=== PATIENT | female | born 1975 | race Two or more races ===

== ENCOUNTER 2020-04-18 14:07 | Emergency (ER) | payer BC, SELFPAY ==
--- NOTE | ~2020-04-18 | US_ITS ---
US OB <= 14 weeks fetus DATE: 04/18/2020 15:14 INDICATION: Vaginal bleeding today. Gravid patient. TECHNIQUE: Real-time imaging, Doppler analysis of the arch is the dose is recommended. COMPARISON: None FINDINGS: The uterus measures 15.7 cm height, 10.4 cm transverse and 6.1 cm anteroposterior dimension . There is a live single intrauterine gestation. heart rate of 161 bpm. Amniotic fluid volume [place] ears within normal limits. [place]-rump length averages 4.77 cm, consistent with estimated gestational age of 11 weeks 4 days +/- 1 week; DEL: 11/03/2020. There is focal mild fluid collection of approximately 8.4 x 15 x 26 mm adjacent to the gestational sa c which may be a small subchorionic hemorrhage. There are 2 uterine fibroids, measuring 2.2 x 1.8 x 1.2 cm and 2.0 x 1.8 x 1.4 cm. The ovaries are not demonstrated. No abnormal free pelvic fluid collection is evident. IMPRESSION: Small subchorionic hemorrhage is suspected Estimated gestational age of 11 weeks 4 days +/- 1 week; DEL: 11/03/2020 Reviewed, dictated and finalized at [facility]. Reviewed, dictated and finalized at [facility].
[2020-04-18 14:13] VITALS: BP 120/64; PULSE 69; RESP 16; TEMP 36.3; O2SAT 100
--- NOTE | 2020-04-18 14:39 | ED.GENADULT ---
HPI - General Adult General Chief complaint: Vaginal Bleeding Stated complaint: , bleeding Time Seen by Provider: 04/18/20 14:39 Source: patient and family Mode of arrival: ambulatory Limitations: no limitations History of Present Illness HPI narrative: Patient is a 44-year-old female G4, P2 approximately 7 weeks dated by last menstrual period who presents for evaluation of vaginal bleeding. Patient reports she had a normal ultrasound, verified IUP in her DEVELOPMENT MECHANIC's office last week, experiencing very light vaginal bleeding earlier today. Patient reports recent vaginal intercourse. No syncope, shortness of breath lightheadedness, or dizziness. No loss of fluids, abdominal cramping or back pain. No contraction-like pain. No fever, cough or shortness of breath. No dysuria. Patient follows with Dr. Zee, DEVELOPMENT MECHANIC at [facility]. Previous pregnancies were uncomplicated, her second resulted in a first trimester spontaneous miscarriage at 7 weeks. Review of Systems Review of Systems: Narrative: CONSTITUTIONAL: Denies fever, chills, or sweats. EYES: Denies visual changes, redness, or discharge. ENT: Denies rhinorrhea, congestion, sore throat, or otalgia. CARDIOVASCULAR: Denies chest pain, palpitations, or edema. RESPIRATORY: Denies cough or dyspnea. GASTROINTESTINAL: Denies abdominal pain, nausea, vomiting, or diarrhea. GENITOURINARY: Denies dysuria or hematuria. SKIN: Denies rash or itching. MUSCULOSKELETAL: Denies back pain, joint pain, or myalgia. NEUROLOGIC: Denies headache, numbness, or weakness. PSYCHIATRIC: Denies anxiety or depression. [facility] Social History Social History (Updated 04/18/20 @ 15:11 by Lupe Gorman MD) Smoking status: Never smoker Alcohol intake: never Substance use: never Living arrangements: with family Gender identity (if verbalized by the patient): Female Exam Narrative: Exam Narrative: GENERAL: Awake, alert, conversant HEAD: Normocephalic, atraumatic. EYES: PERRLA and EOMI. ENT: Nares clear, no rhinorrhea or epistaxis. Mucous membranes moist. NECK: Supple. CHEST: No respiratory distress, breathing even and non labored HEART: Regular rate, sinus rhythm ABDOMEN:Non distended, non tender : Labia majora and minora normal without lesions. Vagina with no blood present. No cervical motion tenderness. Os is not dilated. No adnexal tenderness or fullness bilaterally. No discharge present. EXTREMITIES: Normal range of motion. No edema. SKIN: Warm, dry, no rash. NEURO:No focal deficits. Alert and oriented x3 Course Course Emergency Course: Patient presented for evaluation of first trimester vaginal bleeding. At the time of assessment, ABCs are intact and vital signs are stable. No brisk bleeding or any blood present on exam. No pelvic pain, loss of fluids or contraction-like pain. Laboratory results are reassuring. Ultrasound identifies living IUP heart rate 161. Patient was subchorionic hematoma likely cause of bleeding. Also with recent vaginal intercourse which I explained to patient and her spouse that they need to abstain from until there evaluated by her DEVELOPMENT MECHANIC. Patient is O+, does not require RhoGam. Patient was then discharged home in stable condition. Vital Signs Vital signs: Vital Signs Temperature 36.3 C L 04/18/20 14:13 Pulse Rate 69 04/18/20 14:13 Respiratory Rate 16 04/18/20 14:13 Blood Pressure 120/64 04/18/20 14:13 Pulse Oximetry 100 04/18/20 14:13 Temperature 36.8 C 04/18/20 17:16 Pulse Rate 57 L 04/18/20 17:18 Respiratory Rate 18 04/18/20 17:18 Blood Pressure 124/77 04/18/20 17:18 Pulse Oximetry 100 04/18/20 17:18 Medical Decision Making Vital Signs Vital Signs: Vital Signs Temperature 36.3 C L 04/18/20 14:13 Pulse Rate 69 04/18/20 14:13 Respiratory Rate 16 04/18/20 14:13 Blood Pressure 120/64 04/18/20 14:13 Pulse Oximetry 100 04/18/20 14:13 Temperature 36.8 C 04/18/20 17:16
--- NOTE | 2020-04-18 14:57 | PC.NURSE ---
Patient taken to US prior to obtaining blood or urine samples.
--- NOTE | 2020-04-18 15:26 | PC.NURSE ---
PT STILL IN ULTRASOUND, WILL GET LABWORK UPON HER RETURN.
[2020-04-18 16:02] LABS: Basophils Percent Auto 0.3 % (0.2-1.2); Eosinophils Absolute Auto 0.1 K/mm3 (0-0.3); Eosinophils Percent Auto 0.4 % (0-4.4); Hematocrit 38.5 % (37.0-47.0); Immature Granulocyte Absolute 0.08 K/mm3 (0.00-0.031); Immature Granulocyte Percent A 0.6 % (0-0.5); Lymphocytes Percent Auto 16.8 % (18.3-44.2); Mean Corpuscular HGB Conc 33.8 g/dl (32-36); Mean Corpuscular Hemoglobin 30.7 pg (26-34); Mean Platelet Volume 9.4 fl (7.4-10.4); Monocytes Absolute Auto 1.1 K/mm3 (0.1-0.6); Monocytes Percent Auto 8.5 % (2.6-8.5); Neutrophils Absolute Auto 9.2 K/mm3 (1.3-6.7); Neutrophils Percent Auto 73.4 % (45.5-73.1); Platelet Count Result 283 k/mm3 (150-375); Red Blood Count 4.23 M/mm3 (4.2-5.4); Red Cell Distribution Width 12.9 % (11.5-14.5); White Blood Count 12.5 K/mm3 (4.5-10.0)
[2020-04-18 16:07] LABS: Add Urine Microscopic? YES; Appearance Urine Clear (Clear); Bacteria Urine Trace /hpf; Bilirubin Urine Negative (Negative); Blood Urine Negative (Negative); Color Urine Straw (Yellow); Glucose Urine UA Negative (Negative); Ketones Urine Negative (Negative); Leukocyte Esterase Ur Negative LEU/UL (Negative); Nitrate Urine Negative (Negative); Protein Urine Negative (Negative); Squamous Epithelial Cell Urine Rare /hpf (Few); Urobilinogen Urine Negative mg/dL (<2.0)
[2020-04-18 16:12] LABS: Prothrombin Time 12.8 Seconds (11.1-14.7)
[2020-04-18 16:13] LABS: Partial Thromboplastin Time 27.7 SECONDS (22.3-36.8)
[2020-04-18 16:14] LABS: Alanine Aminotransferase 11 U/L (4-35); Albumin Level 4.1 g/dL (3.5-5.1); Alkaline Phosphatase 55 U/L (38-126); Aspartate Amino Transferase 21 U/L (14-36); Bilirubin,Total 0.2 mg/dL (0.2-1.3); Blood Urea Nitrogen 16 mg/dL (7-17); Carbon Dioxide 28 mmol/L (22-30); Chloride 100 mmol/L (98-107); Estimated CRCL calculation 101 ml/min; Estimated Glomerular Filt Rate > 60; Glucose 94 mg/dL (65-105); Sodium 133 mmol/L (137-145)
[2020-04-18 17:14] LABS: Thyroid Stimulating Hormone Reflex 0.229 uIU/mL (0.465-4.68)
[2020-04-18 17:16] VITALS: BP 124/77; PULSE 57; RESP 18; TEMP 36.8; O2SAT 100
[2020-04-18 17:18] VITALS: BP 124/77; PULSE 57; RESP 18; O2SAT 100
[2020-04-18 17:39] LABS: Free T4 Free Thyroxine Reflex 0.97 ng/dL (0.78-2.19)
== END 2020-04-18 18:00 | disposition home or self-care (01) ==
PROVIDERS: Emergency Provider Emergency Medicine
DX: O46.8X1 Other antepartum hemorrhage, first trimester (principal); O09.521 Supervision of elderly multigravida, first trimester; Z3A.11 11 weeks gestation of pregnancy
CPT/HCPCS: 36415; 76801; 80053; 81001; 84439; 84443; 84480; 84702; 85025; 85461; 85610; 85730; 87070; 87491; 87591; 87808; 99284